=== PATIENT | male | born 1975 | race African-American/Black ===

== ENCOUNTER 2017-05-05 09:02 | Emergency (ER) ==
[2017-05-05 09:13] VITALS: BP 110/63; TEMP 96; BMI 36.0
[2017-05-05] MEDS ORDERED: DUONEB NEB STA (09:33)
[2017-05-05 09:43] LABS: BASOPHILS # (AUTO) 0.1 K/uL (0-0.2); EOSINOPHILS # (AUTO) 0.6 K/ul (0.0-0.7); EOSINOPHILS % (AUTO) 11.4 % (0.0-7.0); HEMATOCRIT 44.4 % (42.0-52.0); HEMOGLOBIN 15.3 g/dl (14.0-18.0); IMMATURE GRANULOCYTE % (AUTO) 0.4 % (0.0-5.0); LYMPHOCYTES # (AUTO) 2.3 K/uL (0.60-3.4); LYMPHOCYTES % (AUTO) 43.8 (10.0-50.0); MEAN CORPUSCULAR HEMOGLOBIN 29.9 pg (27.0-31.0); MEAN CORPUSCULAR HGB CONC 34.5 (31.8-35.4); MEAN CORPUSCULAR VOLUME 86.9 fl (80.0-94.0); MONOCYTES # (AUTO) 0.5 K/uL (0.4-2.0); MONOCYTES % (AUTO) 9.5 (0-10); NEUTROPHILS # (AUTO) 1.8 K/ul (2.0-6.9); NEUTROPHILS % (AUTO) 33.9; PLATELET COUNT 233 10^3/uL (140-440); RED BLOOD COUNT 5.11 10^6/ul (4.70-6.10); WHITE BLOOD COUNT 5.16 K/ul (4.2-10.2)
[2017-05-05 10:36] LABS: ABG BASE EXCESS -3 (-2.0-2.0); ABG HCO3 22.3 (22.0-26.0); ABG PCO2 40.6 mmHg (35-45); ABG PH 7.348 (7.35-7.45)
[2017-05-05 10:37] LABS: ABG TCO2 24 (22.0-28.0)
[2017-05-05 10:40] LABS: ALBUMIN 3.9 g/dL (3.4-5.0); ALBUMIN/GLOBULIN RATIO 1.56; ANION GAP 8.8; BILIRUBIN,TOTAL 0.43 mg/dL (0.00-1.20); BUN/CREATININE RATIO 14.81; CALCIUM 8.4 mg/dL (8.2-10.2); CREATININE 1.08 mg/dL (0.60-1.10); POTASSIUM 3.8 mmol/L (3.5-5.1); TOTAL PROTEIN 6.4 g/dL (6.4-8.2); TROPONIN I 0.021 ng/ml (0.0000-0.4000)
--- NOTE | 2017-05-05 10:48 | DI ---
Exam: Two x-rays of the chest. Comparison: 08/06/2015. Reason for exam: Short of air. FINDINGS: No pneumothorax, pleural effusion, or focal consolidation. The cardiac silhouette is not enlarged. The imaged osseous structures are unremarkable without acute fracture. Impression: No acute cardiopulmonary process.
[2017-05-05 10:58] LABS: CREATINE KINASE MB 7.3 ng/ml (0.0-3.6)
--- NOTE | 2017-05-05 11:20 | ED.PDOC ---
General ED Provider: Dr. JOANIE MENDOZA Chief Complaint: Respiratory Complaint Stated Complaint: cough short of air Time Seen by Physician: 09:00 (not shortness of brath noted in the ER) Mode of Arrival: Walk-In Information Source: Patient Exam Limitations: No limitations Nursing and Triage Documentation Reviewed and Agree: Yes (NONETOXIC PRESENTATION AXO3 NO PAIN) Respiratory Complaint Exam - Respiratory Complaint/Exam Symptoms Are: Resolved Timing: Intermittent Initial Severity: Mild Current Severity: None Location: Chest Character: Reports: Non-productive cough, Dry cough Aggravating: Reports: None Alleviating: Reports: None Associated Signs and Symptoms: Denies: Rapid breathing, Dyspnea, Fever, Chills, Chest pain, Pleuritic chest pain, Wheezing, Hemoptysis, Dizziness, Calf pain, Calf swelling, Edema, URI, Nasal congestion, Hoarseness, Sinus discomfort, Vomiting, Sore throat, Weight loss, Decreased oral intake, Increased thirst, Increased appetite, Increased urination History of Healthcare-Acquired Pneumonia: No Pulmonary Embolism Risk Factors: Smoking Cardiac Risk Factors: Reports: None Pseudomonas Risk Factors: Reports: None Tuberculosis Risk Factors: Reports: None Status Asthmaticus Risk Factors: Reports: None Home Oxygen Use: No Recent Stress Test: No Recent Echo/LV Function: No Current Antibiotic Use: No Current Asthma Medication Use: No Respiratory Distress: None Inadequate Respiratory Effort: No Dysphagia Present: No Stridor Present: No JVD Present: No Accessory Muscle Use: No Retractions: Not Present Diminished Breath Sounds: No Sinus Tenderness: None Grunting Respirations: No Kussmaul Respirations: No Differential Diagnoses: Asthma, CHF, Pulmonary Edema, COPD Exacerbation, Pneumonia, Bronchitis, Lower Resp. Infection Review of Systems - Review Of Systems Constitutional: Reports: No symptoms Eyes: Reports: No symptoms Ears, Nose, Mouth, Throat: Reports: No symptoms Respiratory: Reports: Cough, Wheezing Cardiac: Reports: No symptoms GI: Reports: No symptoms : Reports: No symptoms Musculoskeletal: Reports: No symptoms Skin: Reports: No symptoms Neurological: Reports: No symptoms Endocrine: Reports: No symptoms Hematologic/Lymphatic: Reports: No symptoms All Other Systems: Reviewed and Negative Past Medical History - Past Medical History Endocrine: Reports: None Cardiovascular: Reports: None Respiratory: Reports: COPD Hematological: Reports: None Gastrointestinal: Reports: None Genitourinary: Reports: None Neuro/Psych: Reports: None Musculoskeletal: Reports: None Cancer: Reports: None - Surgical History General Surgical History: Reports: None - Family History Family History: Reports: Unknown - Social History Smoking Status: Light tobacco smoker Hx Substance Use: Yes Alcohol Screening: Occasionally - Immunizations Tetanus Shot up to Date: Yes Physical Exam - Physical Exam Appearance: Well-appearing, No pain distress, Well-nourished Eyes: GLADIS, EOMI, Conjunctiva clear ENT: Ears normal, Nose normal, Oropharynx normal Respiratory: Airway patent, Breath sounds clear, Breath sounds equal, Respirations nonlabored Cardiovascular: RRR, Pulses normal, No rub, No murmur GI/: Soft, Nontender, No masses, Bowel sounds normal, No Organomegaly Musculoskeletal: Normal strength, ROM intact, No edema, No calf tenderness Skin: Warm, Dry, Normal color Neurological: Sensation intact, Motor intact, Reflexes intact, Cranial nerves intact, Alert, Oriented Psychiatric: Affect appropriate, Mood appropriate Interpretation - Radiology Interpretation Radiology Interpretation By: Radiologist Radiology Results: No acute changes - Relationship Mgr Rate: Normal Rhythm: Sinus Ectopy: None - EKG Interpretation Rate: Normal Rhythm: Sinus Ectopy: None [place]: NL ST Segment: Normal Critical Care Note - Critical Care Note Total Time (mins): 0 Course - Course Hematology/Chemistry: 05/05/17 09:35 05/05/17 09:35 Orders, Labs, Meds: Lab Review 05/05/17 05/05/17 09:35 10:15 WBC 5.16 RBC 5.11 Hgb 15.3 Hct 44.4 MCV 86.9 MCH 29.9 MCHC 34.5 RDW Coeff of Amanda 12.4 Plt Count 233 Immature Gran % (Auto) 0.4 Neut % (Auto) 33.9 Lymph % (Auto) 43.8 [place] % (Auto) 9.5 Eos % (Auto) 11.4 H Baso % (Auto) 1.0 Immature Gran # (Auto) 0.0 Neut # 1.8 L Lymph # 2.3 [place] # 0.5 Eos # 0.6 Baso # 0.1 D-Dimer (Manual) 224.82 Puncture Site R rad O2 Saturation 97.0 ABG pH 7.348 L ABG pCO2 40.6 ABG pO2 92.0 ABG HCO3 22.3 ABG Total CO2 24 ABG Base Excess -3 L Rajeev Test + FiO2 % 21.0 Sodium 140 Potassium 3.8 Chloride 108 H Carbon Dioxide 27 Anion Gap 8.8 BUN 16 Creatinine 1.08 Estimated GFR (MDRD) 90.00 BUN/Creatinine Ratio 14.81 Glucose 96 Calcium 8.4 Total Bilirubin 0.43 AST 26 ALT 29 Alkaline Phosphatase 71 Total Creatine Kinase 342 CK-MB (CK-2) 7.3 H* CK-MB (CK-2) % 2.67571 Troponin I 0.0210 Total Protein 6.4 Albumin 3.9 Globulin 2.5 Albumin/Globulin Ratio 1.56 Orders Category Date Time Status ABG DRAW REQUEST Stat CARDIO 05/05/17 09:30 Completed EKG-(ED ONLY) Stat CARDIO 05/05/17 09:29 Completed NEBULIZER TREATMENT Stat CARDIO 05/05/17 09:33 Completed ABG Stat LAB 05/05/17 10:15 Completed CBC W/ AUTO DIFF Stat LAB 05/05/17 09:35 Completed COMPREHENSIVE METABOLIC PANEL Stat LAB 05/05/17 09:35 Completed CREATINE KINASE Stat LAB 05/05/17 09:35 Completed D-DIMER Stat LAB 05/05/17 09:35 Completed TROPONIN I Stat LAB 05/05/17 09:35 Completed Ipratropium/Albuterol Neb [Duoneb] MEDS 05/05/17 09:33 Discontinued 1 vial NEB ONCE STA CHEST, 2 VIEWS PA & LAT Stat RADS 05/05/17 09:29 Completed Medications Discontinued Medications Generic Name Dose Route Start Last Admin Trade Name Freq PRN Reason Stop Dose Admin Albuterol/Ipratropium 1 vial 05/05/17 09:33 05/05/17 10:19 Duoneb NEB 05/05/17 09:34 1 vial ONCE STA Administration Vital Signs: Temp Pulse Resp BP Pulse Ox 05/05/17 09:03 96 F L 64 20 110/63 98 Departure - Departure Time of Disposition: 11:20 Disposition: HOME SELF-CARE Discharge Problem: Bronchitis Instructions: Acute Bronchitis (ED), Wheezing (ED), Bronchospasm (ED), How Your Lungs Work (ED) Condition: Good Pt referred to PMD for follow-up: Yes Additional Instructions: Please call your Family Physician as soon as possible to schedule a follow-up appointment. Allergies/Adverse Reactions: Allergies ibuprofen Adverse Reaction (Verified 06/26/16 15:12) Home Medications: Ambulatory Orders Azithromycin [Zithromax] 250 mg PO DIRECTED #6 tablet 05/05/17 Prednisone 40 mg PO DAILYWM #5 tablet 05/05/17
== END 2017-05-05 11:43 | disposition home or self-care (01) ==
LOC: ED 09:02
DX: J20.9 Acute bronchitis, unspecified (principal); F17.210 Nicotine dependence, cigarettes, uncomplicated
CPT/HCPCS: 36415; 80053; 82550; 82553; 82803; 84484; 85025; 85379; 93005; 93010; 94640; 99283

== ENCOUNTER 2017-10-26 11:02 | Emergency (ER) ==
[2017-10-26 11:10] VITALS: BP 129/80; TEMP 99.7; BMI 34.4
[2017-10-26] MEDS ORDERED: DECADRON 4 MG/ML SDV IM STA (12:10)
[2017-10-26] MEDS ORDERED: TUSSIONEX PO STA (12:12)
[2017-10-26] MEDS ORDERED: ZITHROMAX PO STA (12:12)
--- NOTE | 2017-10-26 12:38 | DI ---
EXAM: CHEST FRONTAL AND LATERAL VIEWS HISTORY: Cough. COMPARISON: 05/05/2017 FINDINGS: Heart size and mediastinal contour remain within normal limits. No acute infiltrates. Normal vascularity with no pleural fluid or pneumothorax. The bony thorax has no acute finding. IMPRESSION: No acute process.
--- NOTE | 2017-10-26 15:06 | ED.PDOC ---
General ED Provider: Dr. JOANIE MENDOZA Chief Complaint: Respiratory Complaint Stated Complaint: flu like symp Time Seen by Physician: 11:00 Mode of Arrival: Walk-In Information Source: Patient Exam Limitations: No limitations Nursing and Triage Documentation Reviewed and Agree: Yes Reviewed sepsis parameters & appropriate labs ordered?: Yes System Inflammatory Response Syndrome: Not Applicable Sepsis Protocol: For patient's 13 years and over: Temp is 96.8 and below OR 101 and greater Pulse >90 BPM Resp >20/minute Acutely Altered Mental Status Are patient's symptoms suggestive of a new infection, such as: -Pneumonia -Skin, Soft Tissue -Endocarditis -UTI -Bone, Joint Infection -Implantable Device -Acute Abdominal Infection -Wound Infection -Meningitis -Blood Stream Catheter Infection -Unknown EENT Complaint Exam - Throat Complaint/Exam Onset/Duration: 1 day Symptoms Are: Still present Timimg: Constant Initial Severity: Moderate Current Severity: Moderate Aggravating: Reports: None Alleviating: Reports: None Associated Signs and Symptoms: Reports: Fever, Chills, Cough, Nasal congestion, Diarrhea. Denies: Dysphagia, Drooling, Foreign body sensation, Wheezing, Hoarseness, Sinus discomfort, Difficulty breathing, Lethargy, Irritability, Decreased activity, Vomiting, Decreased hearing, Ear drainage Uvula Midline: Yes Krupa-tonsillar Fluctuence: No Scarlatinaform Rash Present: No Stridor Present: No Sinus Tenderness Present: No Tonsillar Hypertrophy Present: No Tonsillar Exudate Present: No Krupa-tonsillar Swelling Present: No Adenopathy Present: No Splenomegaly Present: No Differential Diagnoses: Influenza, Pharyngitis, URI Review of Systems - Review Of Systems Constitutional: Reports: Chills, Fever, Malaise, Weakness, Sweats, Loss of appetite Eyes: Reports: No symptoms Ears, Nose, Mouth, Throat: Reports: Throat pain Respiratory: Reports: Cough Cardiac: Reports: No symptoms GI: Reports: No symptoms : Reports: No symptoms Musculoskeletal: Reports: No symptoms Skin: Reports: No symptoms Neurological: Reports: No symptoms Endocrine: Reports: No symptoms Hematologic/Lymphatic: Reports: No symptoms All Other Systems: Reviewed and Negative Past Medical History - Past Medical History Previously Healthy: Yes Endocrine: Reports: None Cardiovascular: Reports: None Respiratory: Reports: COPD Hematological: Reports: None Gastrointestinal: Reports: None Genitourinary: Reports: None Neuro/Psych: Reports: None Musculoskeletal: Reports: None Cancer: Reports: None - Surgical History General Surgical History: Reports: None - Family History Family History: Reports: Unknown - Social History Smoking Status: Light tobacco smoker Hx Substance Use: Yes Alcohol Screening: Occasionally Physical Exam - Physical Exam Appearance: Well-appearing, No pain distress, Well-nourished Eyes: GLADIS, EOMI, Conjunctiva clear ENT: Ears normal, Nose normal, Oropharynx normal Respiratory: Airway patent, Breath sounds equal, Respirations nonlabored, Rhonchi Cardiovascular: RRR, Pulses normal, No rub, No murmur GI/: Soft, Nontender, No masses, Bowel sounds normal, No Organomegaly Musculoskeletal: Normal strength, ROM intact, No edema, No calf tenderness Skin: Warm, Dry, Normal color Neurological: Sensation intact, Motor intact, Reflexes intact, Cranial nerves intact, Alert, Oriented Psychiatric: Affect appropriate, Mood appropriate Interpretation - Radiology Interpretation Radiology Interpretation By: Radiologist Radiology Results: No acute changes Critical Care Note - Critical Care Note Total Time (mins): 0 Course - Course Hematology/Chemistry: 10/26/17 12:16 10/26/17 12:16 Orders, Labs, Meds: Lab Review 10/26/17 10/26/17 10/26/17 12:16 12:16 12:40 WBC 5.70 RBC 5.29 Hgb 15.7 Hct 44.9 MCV 84.9 MCH 29.7 MCHC 35.0 RDW Coeff of Amanda 12.2 Plt Count 219 Immature Gran % (Auto) 0.5 Neut % (Auto) 71.1 Lymph % (Auto) 16.1 [place] % (Auto) 11.2 H Eos % (Auto) 0.7 Baso % (Auto) 0.4 Immature Gran # (Auto) 0.0 Neut # 4.1 Lymph # 0.9 [place] # 0.6 Eos # 0.0 Baso # 0.0 Sodium 135 L Potassium 3.6 Chloride 100 Carbon Dioxide 27 Anion Gap 11.6 BUN 15 Creatinine 1.20 H Estimated GFR (MDRD) 80.00 BUN/Creatinine Ratio 12.50 Glucose 93 Calcium 9.2 Total Bilirubin 0.5 AST 37 ALT 41 Alkaline Phosphatase 81 Total Protein 7.5 Albumin 3.9 Globulin 3.6 Albumin/Globulin Ratio 1.08 Urine Color Urine Clarity Urine pH Ur Specific [place] Urine Protein Urine Glucose (UA) Urine Ketones Urine Blood Urine Nitrite Urine Bilirubin Urine Urobilinogen Ur Leukocyte Esterase Urine Microscopic WBC Ur Squamous Epith Cells Urine Mucus Influenza A (Rapid) Positive by naat H Influenza B (Rapid) Negative by naat 10/26/17 14:25 WBC RBC Hgb Hct MCV MCH MCHC RDW Coeff of Amanda Plt Count Immature Gran % (Auto) Neut % (Auto) Lymph % (Auto) [place] % (Auto) Eos % (Auto) Baso % (Auto) Immature Gran # (Auto) Neut # Lymph # [place] # Eos # Baso # Sodium Potassium Chloride Carbon Dioxide Anion Gap BUN Creatinine Estimated GFR (MDRD) BUN/Creatinine Ratio Glucose Calcium Total Bilirubin AST ALT Alkaline Phosphatase Total Protein Albumin Globulin Albumin/Globulin Ratio Urine Color Yellow Urine Clarity Clear Urine pH 6.0 Ur Specific [place] >=1.030 Urine Protein 2+ Urine Glucose (UA) Negative Urine Ketones Trace Urine Blood Negative Urine Nitrite Negative Urine Bilirubin 1+ Urine Urobilinogen 1.0 Ur Leukocyte Esterase Negative Urine Microscopic WBC 0-2 Ur Squamous Epith Cells 2-5 Urine Mucus 2+ Influenza A (Rapid) Influenza B (Rapid) Orders Category Date Time Status CBC W/ AUTO DIFF Stat LAB 10/26/17 12:16 Completed COMPREHENSIVE METABOLIC PANEL Stat LAB 10/26/17 12:16 Completed MOLECULAR FLU A/B Stat LAB 10/26/17 12:40 Completed MOLECULAR GROUP A STREP Stat LAB 10/26/17 12:40 Results STREP SCREEN Stat LAB 10/26/17 12:40 Results URINALYSIS C & S IF INDICATED Stat LAB 10/26/17 14:25 Completed Azithromycin [Zithromax] MEDS 10/26/17 12:12 Discontinued 1,000 mg PO ONCE STA Dexamethasone 4 mg/ml Inj [Decadron 4 mg/ml Sdv] MEDS 10/26/17 12:10 Discontinued 8 mg IM ONCE STA Hydrocodone/Chlorphen Polis [Tussionex] MEDS 10/26/17 12:12 Discontinued 5 ml PO ONCE STA CHEST, 2 VIEWS PA & LAT Stat RADS 10/26/17 12:09 Completed Medications Discontinued Medications Generic Name Dose Route Start Last Admin Trade Name Freq PRN Reason Stop Dose Admin Azithromycin 1,000 mg 10/26/17 12:12 10/26/17 12:50 Zithromax PO 10/26/17 12:13 1,000 mg ONCE STA Administration Chlorphenir/Hydrocodone Polistirex 5 ml 10/26/17 12:12 10/26/17 12:50 Tussionex PO 10/26/17 12:13 5 ml ONCE STA Administration Dexamethasone Sodium Phosphate 8 mg 10/26/17 12:10 10/26/17 12:50 Decadron 4 Mg/Ml Sdv IM 10/26/17 12:11 8 mg ONCE STA Administration Vital Signs: Temp Pulse Resp BP Pulse Ox 10/26/17 11:05 99.7 F H 106 H 16 129/80 94 L Departure - Departure Time of Disposition: 15:06 Disposition: HOME SELF-CARE Discharge Problem: Influenza A Instructions: Influenza (ED) Condition: Good Pt referred to PMD for follow-up: Yes Additional Instructions: Please call your Family Physician as soon as possible to schedule a follow-up appointment. Allergies/Adverse Reactions: Allergies ibuprofen Adverse Reaction (Verified 10/26/17 11:43) Home Medications: Ambulatory Orders 1 [No Reported Medications] 10/26/17
== END 2017-10-26 15:12 | disposition home or self-care (01) ==
LOC: ED 11:02
DX: J09.X2 Influenza due to identified novel influenza A virus with other respiratory manifestations (principal); F17.210 Nicotine dependence, cigarettes, uncomplicated
CPT/HCPCS: 36415; 80053; 81001; 85025; 87502; 87651; 87880; 96372; 99283

== ENCOUNTER 2018-08-04 20:08 | Emergency (ER) ==
[2018-08-04 20:11] VITALS: BP 142/88; TEMP 98.2; BMI 31.3
[2018-08-04] MEDS ORDERED: SOLU-MEDROL 125 MG IVP STA (20:18)
[2018-08-04] MEDS ORDERED: DUONEB NEB STA (20:18)
[2018-08-04] MEDS ORDERED: LACTATED RINGERS 1,000 ML IV STA (20:18)
--- NOTE | 2018-08-04 20:23 | ED.PDOC ---
General ED Provider: Dr. LEWIS GALLARDO Chief Complaint: Shortness of Air Stated Complaint: Patient is a 43 year old male who comes to the ER with one day history of shortness of breath and cough that is productive cough. Time Seen by Physician: 20:15 Mode of Arrival: Walk-In Information Source: Patient Nursing and Triage Documentation Reviewed and Agree: Yes Does patient meet sepsis criteria?: Yes If yes, has appropriate treatment been initiated?: No System Inflammatory Response Syndrome: Not Applicable Sepsis Protocol: For patient's 13 years and over: Temp is 96.8 and below OR 101 and greater Pulse >90 BPM Resp >20/minute Acutely Altered Mental Status Are patient's symptoms suggestive of a new infection, such as: -Pneumonia -Skin, Soft Tissue -Endocarditis -UTI -Bone, Joint Infection -Implantable Device -Acute Abdominal Infection -Wound Infection -Meningitis -Blood Stream Catheter Infection -Unknown Respiratory Complaint Exam - Asthma Complaint/Exam Onset/Duration: 1 day Symptoms Are: Still present Timing: Constant Initial Severity: Moderate Current Severity: Severe Character: Reports: Productive cough (clear to yellowish color ) Aggravating: Reports: Smoke exposure, Weather change Alleviating: Reports: Steroids, Inhalers, Nebulizers, Oxygen Associated Signs and Symptoms: Reports: SOA, Chest pain, Rapid breathing, Labored breathing Related History: Reports: Similar episode (but the worst today ) Related Surgical History: Reports: None Status Asthmaticus Risk Factors: Reports: Neb Treatment <4hr apart, Smoke exposure. Denies: Prior Intubation Current Asthma Medication Usage: Yes (Albuterol ) Recent Antibiotics: No Respiratory Distress: Moderate Prolonged Expiratory Phase: Yes Unable to Speak Full Sentences: No Fatigue Present: No Differential Diagnoses: Acute Asthma Patient Advised to Stop Smoking: Yes Review of Systems - Review Of Systems Constitutional: Reports: No symptoms Eyes: Reports: No symptoms Ears, Nose, Mouth, Throat: Reports: No symptoms Respiratory: Reports: Cough, Short of air, Wheezing Cardiac: Reports: Chest pain (chest wall pain ) GI: Reports: No symptoms : Reports: No symptoms Musculoskeletal: Reports: No symptoms Skin: Reports: No symptoms Neurological: Reports: Anxiety Endocrine: Reports: No symptoms Hematologic/Lymphatic: Reports: No symptoms All Other Systems: Reviewed and Negative Past Medical History - Past Medical History Previously Healthy: Yes Endocrine: Reports: None Cardiovascular: Reports: None Respiratory: Reports: COPD Hematological: Reports: None Gastrointestinal: Reports: None Genitourinary: Reports: None Neuro/Psych: Reports: None Musculoskeletal: Reports: None Cancer: Reports: None - Surgical History General Surgical History: Reports: None - Family History Family History: Reports: Unknown - Social History Smoking Status: Current every day smoker, Heavy tobacco smoker Hx Substance Use: No Alcohol Screening: None - Immunizations Tetanus Shot up to Date: Yes Physical Exam - Physical Exam Appearance: Ill-appearing Ill-appearing: Severe Pain Distress: Moderate (chest wall) Eyes: GLADIS, EOMI, Conjunctiva clear Neck: Supple Respiratory: Rhonchi, Wheezes Cardiovascular: Tachycardia GI/: Soft, Nontender, No masses, Bowel sounds normal, No Organomegaly Musculoskeletal: Normal strength, ROM intact, No edema, No calf tenderness Skin: Warm, Dry, Normal color Neurological: Sensation intact, Motor intact, Cranial nerves intact, Alert, Oriented Psychiatric: Anxious Physician Notification - Case Discussed Physician Notified: Dr. Lloyd @ [facility]. Time of Notification: 22:19 (accepted to ICU [facility], [place]. ) Physician Notified: Dr. Carr Time of Notification: 21:50 (Is in respiratory failure due to hypoxia, sent to [facility] ) Critical Care Note - Critical Care Note Total Time (mins): 55 Course - Course Hematology/Chemistry: 08/04/18 20:46 08/04/18 20:46 Orders, Labs, Meds: Lab Review 08/04/18 08/04/18 08/04/18 20:18 20:45 20:46 WBC 8.29 RBC 5.34 Hgb 15.7 Hct 46.4 MCV 86.9 MCH 29.4 MCHC 33.8 RDW Coeff of Amanda 12.8 Plt Count 226 Immature Gran % (Auto) 0.4 Neut % (Auto) 64.6 Lymph % (Auto) 16.3 [place] % (Auto) 9.5 Eos % (Auto) 8.8 H Baso % (Auto) 0.4 Immature Gran # (Auto) 0.0 Neut # (Auto) 5.4 Lymph # (Auto) 1.4 Sau[place] # (Auto) 0.8 Eos # (Auto) 0.7 Baso # (Auto) 0.0 Puncture Site Rr O2 Saturation 89.0 L ABG pH 7.367 ABG pCO2 44.4 ABG pO2 59.0 L* ABG HCO3 25.5 ABG Total CO2 27 ABG Base Excess 0 Rajeev Test + FiO2 % 21.0 Sodium Potassium Chloride Carbon Dioxide Anion Gap BUN Creatinine Estimated GFR (MDRD) BUN/Creatinine Ratio Glucose Lactic Acid Calcium Total Bilirubin AST ALT Alkaline Phosphatase Total Creatine Kinase 336.1 H CK-MB (CK-2) 4.840 H CK-MB (CK-2) % 1.4400 Troponin I < 0.012 Total Protein Albumin Globulin Albumin/Globulin Ratio Procalcitonin 08/04/18 08/04/18 08/04/18 20:46 20:46 20:46 WBC RBC Hgb Hct MCV MCH MCHC RDW Coeff of Amanda Plt Count Immature Gran % (Auto) Neut % (Auto) Lymph % (Auto) Sau[place] % (Auto) Eos % (Auto) Baso % (Auto) Immature Gran # (Auto) Neut # (Auto) Lymph # (Auto) [place] # (Auto) Eos # (Auto) Baso # (Auto) Puncture Site O2 Saturation ABG pH ABG pCO2 ABG pO2 ABG HCO3 ABG Total CO2 ABG Base Excess Rajeev Test FiO2 % Sodium 140.3 Potassium 3.64 Chloride 102.8 Carbon Dioxide 29.1 Anion Gap 12.04 BUN 13.4 Creatinine 1.14 H Estimated GFR (MDRD) 84.00 BUN/Creatinine Ratio 11.75 Glucose 105.7 Lactic Acid 1.43 Calcium 8.98 Total Bilirubin 0.41 AST 34.9 ALT 24.1 Alkaline Phosphatase 75.8 Total Creatine Kinase CK-MB (CK-2) CK-MB (CK-2) % Troponin I Total Protein 7.31 Albumin 4.37 Globulin 2.94 Albumin/Globulin Ratio 1.48 Procalcitonin 0.10 Orders Category Date Time Status ABG DRAW REQUEST Routine CARDIO 08/04/18 20:19 Completed EKG-(ED ONLY) Stat CARDIO 08/04/18 20:23 Completed NEBULIZER TREATMENT Stat CARDIO 08/04/18 20:20 Completed NEBULIZER TREATMENT Stat CARDIO 08/04/18 21:01 Completed NEBULIZER TREATMENT Stat CARDIO 08/04/18 22:00 Ordered ED APPLY O2 .ONCE EMERGENCY 08/04/18 20:19 Active ED REPRODUCTION TECHNICIAN APPLIED .ONCE EMERGENCY 08/04/18 20:19 Active ED IV/MEDIPORT/POWERPORT .ONCE EMERGENCY 08/04/18 20:58 Active ED VITAL SIGNS Q1HR EMERGENCY 08/04/18 20:19 Active ABG Stat LAB 08/04/18 20:18 Completed BLOOD CULTURE Stat LAB 08/04/18 20:18 Received CBC W/ AUTO DIFF Stat LAB 08/04/18 20:46 Completed COMPREHENSIVE METABOLIC PANEL Stat LAB 08/04/18 20:46 Completed CPK [CREATINE KINASE] Stat LAB 08/04/18 20:45 Completed LACTIC ACID Stat LAB 08/04/18 20:46 Completed PROCALCITONIN Stat LAB 08/04/18 20:46 Completed TROPONIN I Stat LAB 08/04/18 20:45 Completed 0.9 % Sodium Chloride [Saline Flush] MEDS 08/04/18 20:58 Ordered 1 syr IVF PRN PRN Benzonatate [Tessalon Perles] MEDS 08/04/18 22:01 Discontinued 100 mg PO ONCE STA Ceftriaxone Sodium [Rocephin] MEDS 08/04/18 21:59 Discontinued 1 gm .ROUTE .STK-MED ONE Ceftriaxone Sodium [Rocephin] 1 gm MEDS 08/04/18 21:54 Discontinued 0.9 % Sodium Chloride [Sodium Chloride] 50 ml IV ONCE Ipratropium [place] 0.02% Neb [Atrovent 0.02% Neb] MEDS 08/04/18 21:59 Discontinued 1 vial NEB ONCE STA Ipratropium/Albuterol Neb [Duoneb] MEDS 08/04/18 20:18 Discontinued 1 vial NEB ONCE STA Levalbuterol HCl [Xopenex 1.25 mg] MEDS 08/04/18 21:01 Discontinued 1 vial NEB ONCE STA Methylprednisolone Sod Succ/Pf [Solu-Medrol 125 mg] MEDS 08/04/18 20:18 Discontinued 125 mg IVP ONCE STA Morphine Sulfate [Morphine 2 mg/ml Syringe] MEDS 08/04/18 21:35 Ordered 2 mg IVP Q4H PRN Ondansetron HCl/Pf [Zofran 4 mg/2 ml] MEDS 08/04/18 21:35 Discontinued 4 mg IVP ONCE STA Ringers Lactated Solution [Lactated Ringers] 1,000 ml MEDS 08/04/18 20:18 Active IV 100 mls/hr CHEST, 1V AP ONLY Stat RADS 08/04/18 20:18 Taken Medications Generic Name Dose Route Start Last Admin Trade Name Freq PRN Reason Stop Dose Admin Lactated Ringer's 1,000 mls @ 100 mls/hr 08/04/18 20:18 08/04/18 20:38 Lactated Ringers IV 08/05/18 06:17 100 mls/hr .Q10H STA Administration Morphine Sulfate 2 mg 08/04/18 21:35 08/04/18 21:40 Morphine 2 Mg/Ml Syringe IVP 2 mg Q4H PRN Administration Severe Pain Sodium Chloride 1 syr 08/04/18 20:58 Saline Flush IVF PRN PRN To flush IV Discontinued Medications Generic Name Dose Route Start Last Admin Trade Name Freq PRN Reason Stop Dose Admin Albuterol/Ipratropium 1 vial 08/04/18 20:18 08/04/18 20:36 Duoneb NEB 08/04/18 20:19 1 vial ONCE STA Administration Benzonatate 100 mg 08/04/18 22:01 08/04/18 22:13 Tessalon Perles PO 08/04/18 22:02 100 mg ONCE STA Administration Ceftriaxone Sodium 1 gm/ 50 mls @ 75 mls/hr 08/04/18 21:54 08/04/18 22:03 Sodium Chloride IV 08/04/18 22:33 75 mls/hr ONCE STA Administration Ipratropium [place] 1 vial 08/04/18 21:59 08/04/18 22:17 Atrovent 0.02% [facility] 08/04/18 22:00 1 vial ONCE STA Administration Levalbuterol HCl 1 vial 08/04/18 21:01 08/04/18 21:09 Xopenex 1.25 Mg NEB 08/04/18 21:02 1 vial ONCE STA Administration Methylprednisolone Sodium Succinate 125 mg 08/04/18 20:18 08/04/18 20:37 Solu-Medrol 125 Mg IVP 08/04/18 20:19 125 mg ONCE STA Administration Ondansetron HCl 4 mg 08/04/18 21:35 08/04/18 21:40 Zofran 4 Mg/2 Ml IVP 08/04/18 21:36 4 mg ONCE STA Administration Vital Signs: Temp Pulse Resp BP Pulse Ox 08/04/18 20:53 98.2 F 84 24 99 08/04/18 20:08 98.2 F 109 H 25 H 142/88 H 92 L Departure - Departure Time of Disposition: 23:00 Disposition: TSF SHORT-TRM HOSP Discharge Problem: Status asthmaticus Condition: Fair Pt referred to PMD for follow-up: Yes IPMP verified?: No Allergies/Adverse Reactions: Allergies ibuprofen Adverse Reaction (Verified 08/04/18 20:21) Home Medications: Ambulatory Orders 1 [No Reported Medications] 10/26/17 Pt. Stabilized Within Hospital's Capabilities/Transferred To: [facility] Transfer Form Completed: Yes Disposition Discussed With: Patient
[2018-08-04] MEDS ORDERED: XOPENEX 1.25 MG NEB STA (21:01)
[2018-08-04] MEDS ORDERED: ZOFRAN 4 MG/2 ML IVP STA (21:35)
[2018-08-04] MEDS ORDERED: MORPHINE 2 MG/ML SYRINGE IVP PRN (21:35)
[2018-08-04] MEDS ORDERED: MORPHINE 2 MG/ML SYRINGE ONE (21:39)
[2018-08-04] MEDS ORDERED: ROCEPHIN 1 GM in SODIUM CHLORIDE 50 ML IV STA (21:54)
[2018-08-04] MEDS ORDERED: ATROVENT 0.02% NEB NEB STA (21:59)
[2018-08-04] MEDS ORDERED: ROCEPHIN ONE (21:59)
[2018-08-04] MEDS ORDERED: TESSALON PERLES PO STA (22:01)
--- NOTE | 2018-08-04 23:40 | DI ---
Exam: Single view chest x-ray. Date: 08/04/2018. Comparison: 10/26/2017. HISTORY: Cough and shortness of breath. FINDINGS: No acute osseous abnormalities are seen. The lungs are clear with calcified granulomas. Cardiac silhouette and pulmonary vasculature are normal. Impression: No acute intrathoracic findings. Old granulomatous disease.
== END 2018-08-04 23:15 | disposition short-term general hospital (02) ==
LOC: ED 20:08
DX: J45.902 Unspecified asthma with status asthmaticus (principal); F17.210 Nicotine dependence, cigarettes, uncomplicated; R06.02 Shortness of breath
CPT/HCPCS: 36415; 80053; 82550; 82553; 82803; 83605; 84145; 84484; 85025; 87040; 93005; 93010; 94640; 96361; 96365; 96375; 99285

== ENCOUNTER 2018-08-04 23:09 | Outpatient (CLI) ==
[2018-08-04 20:11] VITALS: BMI 31.3
== END 2018-08-04 23:30 | disposition short-term general hospital (02) ==
LOC: AMBL 23:09
PROVIDERS: ATTEND Internal Medicine Geriatric Medicine
DX: R06.02 Shortness of breath (principal); R06.03 Acute respiratory distress; R05 Cough